=== PATIENT | male | born 1990 | race Caucasian/White ===

== ENCOUNTER → 2021-04-17 | Outpatient (CLI) | payer BC ==
--- NOTE | 2021-04-17 14:56 | XR ---
EXAMINATION TYPE: XR hand limited LT DATE OF EXAM: 04/17/2021 COMPARISON: NONE HISTORY: 31-year-old male swelling and pain fifth digit after baseball injury TECHNIQUE: 2 views FINDINGS: There is a tiny 1.5 mm volar plate avulsion fracture fragment at the palmar base of the fifth middle phalanx. Some soft tissue swelling is present here. Otherwise, no acute fracture, subluxation, or dis location is seen. . IMPRESSION: Tiny 1.5 mm volar plate avulsion fracture fragment at the fifth middle phalangeal base.
== END | disposition home or self-care (01) ==
LOC: RADXRMAIN 12:01
PROVIDERS: ATTEND Physician Assistant Medical
DX: S62.627A Displaced fracture of middle phalanx of left little finger, initial encounter for closed fracture (principal)